=== PATIENT | male | born 1965 | race Hispanic/Latino ===

== ENCOUNTER 2020-03-13 11:11 | Outpatient (CLI) | payer OTHER ==
--- NOTE | 2020-03-13 11:52 | RAD ---
Exam: 5 views lumbar spine HISTORY: Right sided lumbar radiculopathy FINDINGS: 5 lumbar type vertebra. Lumbar spine vertebral body heights are maintained. No fracture. No spondylolisthesis or spondylolysis. Mild osteophyte formation at L2-L3 and L3-L4. In the neutral upright position, there is no spondyloli sthesis. No abnormal motion upon extension or flexion Visualized sacrum and bony pelvis are intact IMPRESSION: 1. No significant degenerative change. 2. No radiographic is evidence of spondylolisthesis or spondylolysis.
== END 2020-03-13 11:12 | disposition home or self-care (01) ==
LOC: BICRAD 11:11
PROVIDERS: ATTEND Family Medicine
DX: M54.16 Radiculopathy, lumbar region (principal)
CPT/HCPCS: 72100

== ENCOUNTER 2020-11-04 16:47 | Outpatient (CLI) | payer OTHER ==
[2020-11-04 18:01] LABS: ALT (SGPT) 72 U/L (8-55); AST (SGOT) 32 U/L (5-34); Albumin 4.1 g/dL (3.5-5.0); Alkaline Phosphatase 89 U/L (40-110); Anion Gap 15 mmol/L (10-20); BUN (Urea Nitrogen) 46 mg/dL (8.4-25.7); Bilirubin, Total 0.3 mg/dL (0.2-1.2); Calc. Creatinine Clearance 0 mL/min (70-130); Calcium 9.6 mg/dL (7.8-10.44); Carbon Dioxide 22 mmol/L (22-29); Chloride 106 mmol/L (98-107); Globulin 2.7 g/dL (2.4-3.5); Glucose 262 mg/dL (70-105); Potassium 5.5 mmol/L (3.5-5.1); Protein, Total 6.8 g/dL (6.0-8.3); Sodium 137 mmol/L (136-145)
[2020-11-04 18:02] LABS: #Eosinphils 0.1 10x3/uL (0.0-0.5); #Monocytes 0.4 10x3/uL (0.0-1.1); #Neutrophils 3.7 10x3/uL (1.5-8.4); %Basophils 0.5 % (0.0-2.0); %Eosinophils 2.1 % (0.0-6.0); %Lymphocytes 25.4 % (18.0-47.0); %Monocytes 7.2 % (0.0-10.0); %Neutrophils 64.4 % (40.0-75.0); Hemoglobin 11.5 g/dL (13.5-17.5); Mean Corpuscular HGB CONC 33.8 g/dL (32.0-36.0); Mean Corpuscular Hemoglobin 29.4 pg (27.0-33.0); Mean Platelet Volume 10.3 fl (7.4-10.4); Platelet Count 147 10x3/uL (150-450); RBC Distribution Width 12.2 % (11.5-14.5); Red Blood Cell (RBC) Count 3.91 10x6/uL (4.32-5.72); White Blood Cell (WBC) Count 5.7 10x3/uL (3.5-10.5)
[2020-11-05 11:20] LABS: SARS-CoV-2 PCR by NAA Not Detected (NotDetected)
== END 2020-11-04 16:48 | disposition home or self-care (01) ==
LOC: LABBT 16:47
PROVIDERS: ATTEND Internal Medicine Cardiovascular Disease
DX: Z01.812 Encounter for preprocedural laboratory examination (principal); Z20.822 Contact with and (suspected) exposure to COVID-19
CPT/HCPCS: 80053; 85025; U0003; U0005

== ENCOUNTER 2020-11-06 06:01 | Day surgery (SDC) | payer OTHER ==
[2020-11-05 12:23] VITALS: BMI 33.7
[2020-11-06] MEDS ORDERED: Midazolam HCl 2 mg/2 ml Vial ONE ×2 (06:28→08:06)
[2020-11-06] MEDS ORDERED: Heparin 10,000 UNITS/ 10 ML VIAL ONE (06:29)
[2020-11-06] MEDS ORDERED: Fentanyl 100 MCG/2 ML VIAL ONE ×2 (06:29→08:07)
[2020-11-06] MEDS ORDERED: Lidocaine 1% (PF) 30 ML VIAL ONE (06:29)
[2020-11-06 07:20] LABS: Anion Gap 15 mmol/L (10-20); BUN (Urea Nitrogen) 35 mg/dL (8.4-25.7); Calc. Creatinine Clearance 91 mL/min (70-130); Calcium 9.6 mg/dL (7.8-10.44); Carbon Dioxide 21 mmol/L (22-29); Cardiac Risk 4.5 (Less than 4.5); Chloride 106 mmol/L (98-107); Cholesterol 149 mg/dl (< 200 Desired); Glucose 196 mg/dL (70-105); HDL Cholesterol 33 mg/dL (>60 Neg Risk); LDL Cholesterol, Calculated 80 mg/dL; Potassium 5.3 mmol/L (3.5-5.1); Sodium 137 mmol/L (136-145); Triglycerides 179 mg/dL (Less than 150)
[2020-11-06] MEDS ORDERED: Iopamidol 370 76% 100 ML VIAL ONE (08:48)
[2020-11-06] MEDS ORDERED: Protamine Sulfate 50 MG/5 ML VIAL ONE (09:14)
== END 2020-11-06 15:32 | disposition home or self-care (01) ==
LOC: SDC 06:01
PROVIDERS: ATTEND Internal Medicine Cardiovascular Disease
PROC: 4A023N7 Measurement of Cardiac Sampling and Pressure, Left Heart, Percutaneous Approach (ICD-10-PCS; principal; 2020-11-06)
PROC: B2111ZZ Fluoroscopy of Multiple Coronary Arteries using Low Osmolar Contrast (ICD-10-PCS; principal; 2020-11-06)
DX: R94.39 Abnormal result of other cardiovascular function study (principal); R55 Syncope and collapse; E78.00 Pure hypercholesterolemia, unspecified; I10 Essential (primary) hypertension; E11.319 Type 2 diabetes mellitus with unspecified diabetic retinopathy without macular edema; E78.5 Hyperlipidemia, unspecified; E11.40 Type 2 diabetes mellitus with diabetic neuropathy, unspecified; I73.9 Peripheral vascular disease, unspecified; Z79.4 Long term (current) use of insulin; Z79.82 Long term (current) use of aspirin; Z79.899 Other long term (current) drug therapy
CPT/HCPCS: 36416; 76942; 80048; 80061; 85347; 93454; 99152; J1644; J2001; J2250; J2720; J3010; Q9967

== ENCOUNTER 2023-09-16 02:05 | Inpatient (IN) | payer BC ==
[2023-09-16] MEDS ORDERED: Sodium Chloride 0.9% 100 ML ONE (07:13)
[2023-09-16] MEDS ORDERED: cefTRIAXone (ROCEPHIN) 2 GM VIAL ONE (07:13)
[2023-09-16] MEDS ORDERED: Azithromycin 500 MG VIAL ONE (08:34)
[2023-09-16 09:39] LABS: ALT (SGPT) 58 U/L (8-55); AST (SGOT) 35 U/L (5-34); Albumin 3.4 g/dL (3.5-5.0); Alkaline Phosphatase 88 U/L (40-110); Anion Gap 14 mmol/L (10-20); BUN (Urea Nitrogen) 34 mg/dL (8.4-25.7); Bilirubin, Total 0.8 mg/dL (0.2-1.2); Calc. Creatinine Clearance 0 mL/min (70-130); Calcium 9.4 mg/dL (7.8-10.44); Carbon Dioxide 23 mmol/L (22-29); Chloride 104 mmol/L (98-107); Estimated GFR 44; Globulin 3.7 g/dL (2.4-3.5); Glucose 209 mg/dL (70-105); Potassium 4.9 mmol/L (3.5-5.1); Protein, Total 7.1 g/dL (6.0-8.3); Sodium 136 mmol/L (136-145)
[2023-09-16 09:41] LABS: Troponin I Less than 0.010 ng/mL (< 0.028)
[2023-09-16 10:01] LABS: #Basophils 0.03 10x3/uL (0.0-0.2); %Basophils 0.2 % (0.0-1.0); %Eosinophils 0.9 % (0.0-10.0); %Lymphocytes 6.3 % (21.0-51.0); %Monocytes 5.2 % (0.0-10.0); %Neutrophils 86.8 % (42.0-75.0); Hematocrit 35.2 % (42.0-52.0); Hemoglobin 12.1 g/dL (14.0-18.0); Mean Corpuscular HGB CONC 34.4 g/dL (32.0-36.0); Mean Corpuscular Hemoglobin 29.8 pg (27.0-31.0); Mean Corpuscular Volume 86.7 fL (78.0-98.0); Mean Platelet Volume 9.3 fL (7.4-10.4); Platelet Count 237 10x3/uL (130-400); RBC Distribution Width 12.2 % (11.5-14.5); Red Blood Cell (RBC) Count 4.06 mill/uL (4.70-6.10)
[2023-09-16 13:38] VITALS: BMI 38.7
[2023-09-16] MEDS ORDERED: Glucagon 1 MG/ML KIT IM PRN (14:00)
[2023-09-16] MEDS ORDERED: Acetaminophen 325 MG TAB PO PRN (14:00)
[2023-09-16] MEDS ORDERED: Dextrose 5% in Water 1,000 ML IV PRN (14:00)
[2023-09-16] MEDS ORDERED: Ondansetron PF 4 MG/2 ML Vial SLOW IVP PRN (14:00)
[2023-09-16] MEDS ORDERED: Dextrose 50% Abboject 50 ML SYRINGE SLOW IVP PRN (14:00)
[2023-09-16] MEDS ORDERED: Guaifenesin DM 100-10/5 ML UDCUP PO PRN (14:00)
[2023-09-16] MEDS: HYDROcodone/Acetaminophen 5/325 mg Tablet PO PRN (14:22)
[2023-09-16] MEDS: Enoxaparin 40 MG (0.4 mL) SYRINGE SC SCH (14:24)
[2023-09-16] MEDS ORDERED: Iopamidol-370 76% 500 ML MDV (1 ML CHARGE) ONE (15:42)
[2023-09-16 16:47] LABS: Lactic Acid 1.1 mmol/L (0.5-2.2)
[2023-09-16] MEDS: Insulin Lispro 100 UNIT/ML 10 ML VIAL SC PRN (17:49)
[2023-09-16] MEDS: Famotidine 20 MG TAB PO SCH (19:32)
[2023-09-16] MEDS: Atorvastatin Calcium 20 MG TAB PO SCH (19:32)
[2023-09-16] MEDS: Carvedilol 6.25 MG TAB PO SCH (19:32)
[2023-09-16] MEDS: traMADol HCl 50 MG TAB PO SCH (19:38)
[2023-09-16] MEDS: HumuLIN 70/30 100 Unit/ml 10 ml Vial SC SCH (20:17)
[2023-09-16] MEDS: Morphine 2 MG/ML VIAL SLOW IVP SCH (20:55)
[2023-09-16] MEDS: Lidocaine 2% Viscous Solution 10 ML, Aluminum & Magnesium Hydroxide 30 ML SSW SCH (22:11)
[2023-09-17 00:56] LABS: Hematocrit 34.4 % (42.0-52.0); Hemoglobin 11.4 g/dL (14.0-18.0)
[2023-09-17 03:52] LABS: Bacteria/HPF None Seen HPF (None Seen); Bilirubin Negative (Negative); Blood, Urine Trace (Negative); CAUTI Indications for Culture Pelvic or flank pain; Clarity Clear (Clear); Glucose, Urine (Dipstick) 500 mg/dL (Negative); Ketone, Urine Negative (Negative); Leukocyte 25 Leu/uL (Negative); Nitrite Negative (Negative); Protein, Urine (Dipstick) 20 mg/dL (Neg-Trace); RBC/HPF 0-3 HPF (0-3); Renal Epithelial 0-3 HPF (None Seen); Specific Gravity, Urine 1.025 (1.002-1.036); Squamous Epithelial None Seen HPF (0-3); Urobilinogen Normal mg/dL (Less than 2); pH, Urine 5.5 (5.0-9.0)
[2023-09-17 03:59] LABS: Urine Culture Reflex No No
[2023-09-17 07:02] LABS: #Basophils 0.03 10x3/uL (0.0-0.2); %Basophils 0.3 % (0.0-1.0); %Eosinophils 0.8 % (0.0-10.0); %Lymphocytes 7.5 % (21.0-51.0); %Monocytes 7.2 % (0.0-10.0); %Neutrophils 83.7 % (42.0-75.0); Hematocrit 29.8 % (42.0-52.0); Hemoglobin 9.8 g/dL (14.0-18.0); Mean Corpuscular HGB CONC 32.9 g/dL (32.0-36.0); Mean Corpuscular Hemoglobin 29.3 pg (27.0-31.0); Mean Corpuscular Volume 89.2 fL (78.0-98.0); Mean Platelet Volume 9.6 fL (7.4-10.4); Platelet Count 197 10x3/uL (130-400); RBC Distribution Width 12.5 % (11.5-14.5); Red Blood Cell (RBC) Count 3.34 mill/uL (4.70-6.10)
[2023-09-17 07:20] LABS: ALT (SGPT) 40 U/L (8-55); AST (SGOT) 21 U/L (5-34); Albumin 2.6 g/dL (3.5-5.0); Alkaline Phosphatase 72 U/L (40-110); Anion Gap 10 mmol/L (10-20); BUN (Urea Nitrogen) 32 mg/dL (8.4-25.7); Bilirubin, Total 0.6 mg/dL (0.2-1.2); Calc. Creatinine Clearance 97 mL/min (70-130); Calcium 8.6 mg/dL (7.8-10.44); Carbon Dioxide 23 mmol/L (22-29); Chloride 101 mmol/L (98-107); Estimated GFR 52; Globulin 3.4 g/dL (2.4-3.5); Glucose 293 mg/dL (70-105); Sodium 129 mmol/L (136-145)
[2023-09-17] MEDS: cefTRIAXone\\ROCEPHIN 1 GM in Sodium Chloride 0.9% 100 ML IVPB SCH (08:07)
[2023-09-17] MEDS: Azithromycin 500 MG in Sodium Chloride 0.9% 250 ML 250 ML IVPB SCH (08:07)
[2023-09-17] MEDS ORDERED: Dextrose 5% in Water 1,000 ML IV PRN (08:08)
[2023-09-17] MEDS: Aspirin 81 mg Enteric Coated Tablet PO SCH (08:08)
[2023-09-17] MEDS: BuPROPion XL 150 MG ER.TAB PO SCH (08:08)
[2023-09-17] MEDS: DULoxetine 60 MG CAP PO SCH (08:08)
[2023-09-17] MEDS: Enoxaparin 40 MG (0.4 mL) SYRINGE SC SCH (08:09)
[2023-09-17] MEDS: Senokot S 8.6-50 MG TAB PO PRN (08:18)
[2023-09-17] MEDS: Lisinopril 20 MG TAB PO SCH (08:28)
[2023-09-17] MEDS ORDERED: Lisinopril 20 MG TAB PO SCH (09:00)
[2023-09-17] MEDS: Lidocaine 4% Patch TD SCH (10:27)
[2023-09-17] MEDS: Insulin Regular, Human 100 UNIT/ML 10 ML VIAL SC PRN ×2 (12:27→19:59)
[2023-09-17] MEDS: Acetaminophen 325 MG TAB PO SCH ×2 (15:15→19:55)
[2023-09-17] MEDS ORDERED: Morphine 4 MG/ML VIAL SLOW IVP PRN (15:48)
[2023-09-17] MEDS: tiZANidine HCl 4 MG TAB PO SCH (19:55)
[2023-09-17] MEDS: Senokot S 8.6-50 MG TAB PO SCH (19:55)
[2023-09-17] MEDS: guaiFENesin ER 600 MG TAB PO SCH (19:57)
[2023-09-17] MEDS: Transdermal Patch Removal TOP SCH (20:01)
[2023-09-18] MEDS: HYDROcodone/Acetaminophen 5/325 mg Tablet PO PRN (06:04)
[2023-09-18 07:07] LABS: #Basophils Less than 0.03 10x3/uL (0.0-0.2); %Basophils 0.1 % (0.0-1.0); %Eosinophils 1.8 % (0.0-10.0); %Lymphocytes 10.3 % (21.0-51.0); %Monocytes 7.5 % (0.0-10.0); %Neutrophils 79.9 % (42.0-75.0); Hematocrit 28.5 % (42.0-52.0); Hemoglobin 9.4 g/dL (14.0-18.0); Mean Corpuscular Hemoglobin 28.7 pg (27.0-31.0); Mean Corpuscular Volume 87.2 fL (78.0-98.0); Mean Platelet Volume 9.4 fL (7.4-10.4); Platelet Count 144 10x3/uL (130-400); RBC Distribution Width 12.3 % (11.5-14.5); Red Blood Cell (RBC) Count 3.27 mill/uL (4.70-6.10)
[2023-09-18 07:36] LABS: ALT (SGPT) 42 U/L (8-55); AST (SGOT) 26 U/L (5-34); Albumin 2.5 g/dL (3.5-5.0); Alkaline Phosphatase 72 U/L (40-110); Anion Gap 10 mmol/L (10-20); BUN (Urea Nitrogen) 29 mg/dL (8.4-25.7); Bilirubin, Total 0.4 mg/dL (0.2-1.2); Calc. Creatinine Clearance 125 mL/min (70-130); Calcium 8.3 mg/dL (7.8-10.44); Carbon Dioxide 23 mmol/L (22-29); Chloride 101 mmol/L (98-107); Estimated GFR 71; Globulin 2.9 g/dL (2.4-3.5); Glucose 255 mg/dL (70-105); Potassium 4.7 mmol/L (3.5-5.1); Protein, Total 5.4 g/dL (6.0-8.3); Sodium 129 mmol/L (136-145)
[2023-09-18] MEDS ORDERED: Guaifenesin DM 100-10/5 ML UDCUP PO PRN (13:43)
[2023-09-18] MEDS: Polyethylene Glycol 3350 17 GM Packet PO SCH (13:55)
[2023-09-18] MEDS: Senokot S 8.6-50 MG TAB PO SCH (19:55)
[2023-09-18] MEDS: HumuLIN 70/30 100 Unit/ml 10 ml Vial SC SCH (20:36)
[2023-09-18] MEDS ORDERED: guaiFENesin ER 600 MG TAB PO SCH (21:00)
[2023-09-19 06:53] LABS: #Basophils Less than 0.03 10x3/uL (0.0-0.2); %Basophils 0.3 % (0.0-1.0); %Eosinophils 1.9 % (0.0-10.0); %Lymphocytes 10.9 % (21.0-51.0); %Monocytes 8.5 % (0.0-10.0); %Neutrophils 78.1 % (42.0-75.0); Hematocrit 30.4 % (42.0-52.0); Hemoglobin 10.1 g/dL (14.0-18.0); Mean Corpuscular HGB CONC 33.2 g/dL (32.0-36.0); Mean Corpuscular Hemoglobin 28.8 pg (27.0-31.0); Mean Corpuscular Volume 86.6 fL (78.0-98.0); Mean Platelet Volume 9.3 fL (7.4-10.4); Platelet Count 159 10x3/uL (130-400); RBC Distribution Width 12.3 % (11.5-14.5); Red Blood Cell (RBC) Count 3.51 mill/uL (4.70-6.10)
[2023-09-19 07:16] LABS: Anion Gap 11 mmol/L (10-20); BUN (Urea Nitrogen) 24 mg/dL (8.4-25.7); Calc. Creatinine Clearance 127 mL/min (70-130); Calcium 9.2 mg/dL (7.8-10.44); Carbon Dioxide 26 mmol/L (22-29); Chloride 102 mmol/L (98-107); Estimated GFR 73; Glucose 188 mg/dL (70-105); Potassium 4.7 mmol/L (3.5-5.1); Sodium 134 mmol/L (136-145)
[2023-09-19] MEDS: Polyethylene Glycol 3350 17 GM Packet PO SCH (08:13)
[2023-09-19] MEDS: HumuLIN 70/30 100 Unit/ml 10 ml Vial SC SCH (08:13)
[2023-09-19] MEDS: Milk Of Magnesia 30 ML UDCUP PO PRN (17:36)
[2023-09-20 06:31] LABS: #Basophils Less than 0.03 10x3/uL (0.0-0.2); %Basophils 0.2 % (0.0-1.0); %Eosinophils 2.4 % (0.0-10.0); %Lymphocytes 12.3 % (21.0-51.0); %Monocytes 9.5 % (0.0-10.0); Hematocrit 27.7 % (42.0-52.0); Hemoglobin 9.3 g/dL (14.0-18.0); Mean Corpuscular HGB CONC 33.6 g/dL (32.0-36.0); Mean Corpuscular Hemoglobin 29.7 pg (27.0-31.0); Mean Corpuscular Volume 88.5 fL (78.0-98.0); Mean Platelet Volume 9.6 fL (7.4-10.4); Platelet Count 163 10x3/uL (130-400); RBC Distribution Width 12.3 % (11.5-14.5); Red Blood Cell (RBC) Count 3.13 mill/uL (4.70-6.10)
[2023-09-20 06:50] LABS: Anion Gap 12 mmol/L (10-20); BUN (Urea Nitrogen) 22 mg/dL (8.4-25.7); Calc. Creatinine Clearance 129 mL/min (70-130); Calcium 9.2 mg/dL (7.8-10.44); Carbon Dioxide 25 mmol/L (22-29); Chloride 101 mmol/L (98-107); Estimated GFR 73; Glucose 220 mg/dL (70-105); Potassium 5.4 mmol/L (3.5-5.1); Sodium 133 mmol/L (136-145)
[2023-09-20] MEDS ORDERED: Furosemide 20 MG TAB PO SCH (09:00)
[2023-09-20] MEDS: Furosemide 40 MG TAB PO SCH (09:15)
[2023-09-20] MEDS: Amlodipine 5 MG TAB PO SCH (09:16)
[2023-09-20] MEDS: Senokot S 8.6-50 MG TAB PO SCH (20:06)
[2023-09-21 06:07] LABS: #Basophils Less than 0.03 10x3/uL (0.0-0.2); %Basophils 0.3 % (0.0-1.0); %Eosinophils 1.6 % (0.0-10.0); %Lymphocytes 12.1 % (21.0-51.0); %Monocytes 9.8 % (0.0-10.0); %Neutrophils 75.7 % (42.0-75.0); Hematocrit 27.5 % (42.0-52.0); Hemoglobin 9.4 g/dL (14.0-18.0); Mean Corpuscular HGB CONC 34.2 g/dL (32.0-36.0); Mean Corpuscular Hemoglobin 29.3 pg (27.0-31.0); Mean Corpuscular Volume 85.7 fL (78.0-98.0); Mean Platelet Volume 9.2 fL (7.4-10.4); Platelet Count 187 10x3/uL (130-400); RBC Distribution Width 12.2 % (11.5-14.5); Red Blood Cell (RBC) Count 3.21 mill/uL (4.70-6.10)
[2023-09-21 06:25] LABS: Anion Gap 13 mmol/L (10-20); BUN (Urea Nitrogen) 24 mg/dL (8.4-25.7); Calc. Creatinine Clearance 131 mL/min (70-130); Calcium 9.1 mg/dL (7.8-10.44); Carbon Dioxide 25 mmol/L (22-29); Chloride 100 mmol/L (98-107); Estimated GFR 75; Glucose 152 mg/dL (70-105); Potassium 4.4 mmol/L (3.5-5.1); Sodium 134 mmol/L (136-145)
[2023-09-21 08:04] VITALS: BP 133/68; TEMP 97.4
== END 2023-09-21 12:03 | disposition home or self-care (01) | DRG 871 ==
LOC: ERS 02:05 → SUATTDRO 02:05 → T4-A 11:45 → INTOOBSV 11:45 → OBSVTOIN 09-17 11:34
PROVIDERS: ADMIT Internal Medicine; ATTEND Internal Medicine
DX: A41.9 Sepsis, unspecified organism (principal); J18.9 Pneumonia, unspecified organism; J96.01 Acute respiratory failure with hypoxia; E87.1 Hypo-osmolality and hyponatremia; J90 Pleural effusion, not elsewhere classified; N17.9 Acute kidney failure, unspecified; R65.20 Severe sepsis without septic shock; N18.30 Chronic kidney disease, stage 3 unspecified; E86.1 Hypovolemia; K76.0 Fatty (change of) liver, not elsewhere classified; E11.22 Type 2 diabetes mellitus with diabetic chronic kidney disease; I12.9 Hypertensive chronic kidney disease with stage 1 through stage 4 chronic kidney disease, or unspecified chronic kidney disease; E78.5 Hyperlipidemia, unspecified; R79.89 Other specified abnormal findings of blood chemistry; E66.9 Obesity, unspecified; Z79.4 Long term (current) use of insulin; Z90.49 Acquired absence of other specified parts of digestive tract; Z68.38 Body mass index [BMI] 38.0-38.9, adult
CPT/HCPCS: 36415; 36416; 71045; 71046; 74177; 76705; 80048; 80053; 81001; 83605; 83690; 84145; 84484; 85025; 87040; 93005; 96372; 96374; 96375; G0378; J0456; J0696; J1650; J1815; J2272; J3490; J7050; Q9967

== ENCOUNTER 2023-10-28 09:33 | Outpatient (CLI) | payer BC | END 2023-10-28 09:34 | disposition home or self-care (01) | LOC: RAD 09:33 | PROVIDERS: ATTEND Internal Medicine | DX: R06.00 Dyspnea, unspecified (principal); I51.7 Cardiomegaly; J90 Pleural effusion, not elsewhere classified | CPT/HCPCS: 71046 ==

== ENCOUNTER 2024-03-30 10:07 | Outpatient (CLI) | payer BC | END 2024-03-30 10:08 | disposition home or self-care (01) | LOC: RAD 10:07 | PROVIDERS: ATTEND Internal Medicine Critical Care Medicine | DX: R06.00 Dyspnea, unspecified (principal) | CPT/HCPCS: 71046 ==